=== PATIENT | male | born 1950 | race Caucasian/White ===

== ENCOUNTER 2020-12-06 00:48 | Day surgery (SDC) | payer MEDICARE, OTHER, SELFPAY ==
[2020-11-21 09:59] VITALS: BMI 28.0
--- NOTE | 2020-11-27 13:57 | PC.NURSE ---
CLEARANCE TO STOP PLAVIX SENT TO DR. MOTT, LAST OFFICE VISIT AND LETTER REGARDING PLAVIX RECEIVED FROM DR. MOTT'S OFFICE. LETTER FOR CLEARANCE STATES PT IS NOT ON PLAVIX. I CALLED PT TO CONFIRM AND PATIENT STATES THAT AT LAST OFFICE VISIT PT WAS TOLD TO STOP PLAVIX AND DO JUST AN ASPIRIN A DAY, AND HE ASKED IF HE COULD FINISH THE PRESCRIPTION HE HAD AND DR. MOTT AGREED IF HE WANTED TO AND HE WOULD NOT SEND NEW SCRIPT FOR PLAVIX. OFFICE VISIT WAS ON 09/13/2020, PT HAD JUST FILLED PLAVIX ON 09/09/2020. PT HAS 2 WEEKS OF PLAVIX LEFT BUT WILL HOLD OF 12/01/2020, WILL CONTINUE [address]IN[address] DR. MOTT'S OFFICE NURSE NIKKI CALLED AND INFORMED OF THIS.
[2020-12-06 08:46] VITALS: BP 158/89; PULSE 47; RESP 16; TEMP 36.4; O2SAT 97
[2020-12-06] MEDS: LACTATED RINGERS 1,000 ML 150 ML IV CONT (08:57)
--- NOTE | 2020-12-06 09:17 | SUR.PREOP ---
DR DOCKERY NOTIFIED OF HR OF 47 NO NEW ORDERS AT THIS TIME
--- NOTE | 2020-12-06 09:21 | WPDANESEPPF ---
Anes - Initial Pre Proc Eval Procedure: Operation Date: 12/06/20 10:00 Proposed Procedures p Screening Colonoscopy - Fidel Kimble MD Date/Time: 12/06/20 09:21 Surgeon: Fidel Kimble MD Pre Op Diagnosis: fm hx of colon ca Patient Data Age: 70 Gender: M Height: 1.78 m Weight: 87.9 kg Last Vital Signs Temp 97.5 F L 12/06/20 08:46 Pulse 47 L 12/06/20 08:46 Resp 16 12/06/20 08:46 BP 158/89 H 12/06/20 08:46 Pulse Ox 97 12/06/20 08:46 Allergies Allergy/AdvReac Type Severity Reaction Status Date / Time venom-honey bee Allergy Severe SEVERE Unverified 12/06/20 08:43 CARRIES TWINJET Home Medications Medication Instructions Recorded Confirmed Type allopurinol 300 mg PO DAILY 11/21/20 12/06/20 History clopidogrel 75 mg PO DAILY 11/21/20 12/06/20 History epinephrine See Rx Instructions .ROUTE .COMPLEX 11/21/20 12/06/20 History felodipine 5 mg PO QPM 11/21/20 12/06/20 History finasteride 5 mg PO DAILY 11/21/20 12/06/20 History levothyroxine 75 mcg PO DAILY 11/21/20 12/06/20 History lisinopril 20 mg PO DAILY 11/21/20 12/06/20 History nebivolol [Bystolic] 10 mg PO DAILY 11/21/20 12/06/20 History rosuvastatin 20 mg PO HS 11/21/20 12/06/20 History tadalafil 5 mg PO DAILY 11/21/20 12/06/20 History tamsulosin 0.4 mg PO QPM 11/21/20 12/06/20 History Adults Multivitamin 1 cap PO DAILY 11/25/20 12/06/20 History Turmeric Curcumin 1,000 mg PO BID 11/25/20 12/06/20 History aspirin [Adult Low Dose Aspirin] 81 mg PO DAILY 11/25/20 12/06/20 History azelaic acid See Rx Instructions .ROUTE .COMPLEX 11/25/20 12/06/20 History coenzyme Q10 200 mg PO DAILY 11/25/20 12/06/20 History ferrous sulfate 325 mg PO DAILY 11/25/20 12/06/20 History ketoconazole [Nizoral] See Rx Instructions .ROUTE .COMPLEX 11/25/20 12/06/20 History loratadine [Claritin] 10 mg PO DAILY 11/25/20 12/06/20 History lutein-zeaxanthin 1 cap PO DAILY 11/25/20 12/06/20 History metronidazole See Rx Instructions .ROUTE .COMPLEX 11/25/20 12/06/20 History nitroglycerin 0.4 mg SUBLINGUAL Q5M PRN 11/25/20 12/06/20 History potassium 99 mg PO DAILY 11/25/20 12/06/20 History tacrolimus [Protopic] See Rx Instructions .ROUTE .COMPLEX 11/25/20 12/06/20 History Patient hx anesthesia problems: none Family hx anesthesia problems: none PMFSH Social History Social History (Updated 11/21/20 @ 09:56 by Marina Garnica RN) Smoking status: Never smoker Second hand tobacco smoke exposure: Yes Alcohol intake: never Substance use: never Substance use type: does not use Living arrangements: with family Occupation/Education: occupation Gender identity (if verbalized by the patient): Male Sexual Orientation (if Verbalized by the Patient): Straight or Heterosexual Spiritual care concerns: No Agree to blood products: No Anes - Eval Final PreProcedure Day of Procedure 12/06/20 09:21 Patient weight: normal Heart: regular rate and rhythm and bradycardia Lungs: clear to auscultation Airway: Mallampati scale class II Neurological: alert and oriented Last oral intake: >/= 8 hours ASA classification: III Emergent: no Anesthetic plan: proceed Anesthesia type and monitoring: general GIVS and standard monitoring Informed Consent: The patient's anesthetic plan and its attendant risks and benefits were discussed with the patient/family/POA. Questions were solicited and answers provided to the satisfaction of the patient/family/POA.
--- NOTE | 2020-12-06 09:24 | PM.HPGS ---
History of Present Illness History of Present Illness Consent: Risks, benefits, and alternatives have been discussed and questions answered. Patient agrees to proceed with procedure. Chief complaint: fm hx of colon ca Narrative: Murali South is a 70 year old male Referred for colon cancer screening. He has a family history of colon cancer Review of Systems Review of Systems: All systems reviewed & are unremarkable except as noted in HPI and below PMFSH Social History Social History Smoking status: Never smoker Second hand tobacco smoke exposure: Yes Alcohol intake: never Substance use: never Substance use type: does not use Living arrangements: with family Occupation/Education: occupation Gender identity (if verbalized by the patient): Male Sexual Orientation (if Verbalized by the Patient): Straight or Heterosexual Spiritual care concerns: No Agree to blood products: No Meds Home Medications and Allergies Home Medications Medication Instructions Recorded Confirmed Type allopurinol 300 mg PO DAILY 11/21/20 12/06/20 History clopidogrel 75 mg PO DAILY 11/21/20 12/06/20 History epinephrine See Rx Instructions .ROUTE .COMPLEX 11/21/20 12/06/20 History felodipine 5 mg PO QPM 11/21/20 12/06/20 History finasteride 5 mg PO DAILY 11/21/20 12/06/20 History levothyroxine 75 mcg PO DAILY 11/21/20 12/06/20 History lisinopril 20 mg PO DAILY 11/21/20 12/06/20 History nebivolol [Bystolic] 10 mg PO DAILY 11/21/20 12/06/20 History rosuvastatin 20 mg PO HS 11/21/20 12/06/20 History tadalafil 5 mg PO DAILY 11/21/20 12/06/20 History tamsulosin 0.4 mg PO QPM 11/21/20 12/06/20 History Adults Multivitamin 1 cap PO DAILY 11/25/20 12/06/20 History Turmeric Curcumin 1,000 mg PO BID 11/25/20 12/06/20 History aspirin [Adult Low Dose Aspirin] 81 mg PO DAILY 11/25/20 12/06/20 History azelaic acid See Rx Instructions .ROUTE .COMPLEX 11/25/20 12/06/20 History coenzyme Q10 200 mg PO DAILY 11/25/20 12/06/20 History ferrous sulfate 325 mg PO DAILY 11/25/20 12/06/20 History ketoconazole [Nizoral] See Rx Instructions .ROUTE .COMPLEX 11/25/20 12/06/20 History loratadine [Claritin] 10 mg PO DAILY 11/25/20 12/06/20 History lutein-zeaxanthin 1 cap PO DAILY 11/25/20 12/06/20 History metronidazole See Rx Instructions .ROUTE .COMPLEX 11/25/20 12/06/20 History nitroglycerin 0.4 mg SUBLINGUAL Q5M PRN 11/25/20 12/06/20 History potassium 99 mg PO DAILY 11/25/20 12/06/20 History tacrolimus [Protopic] See Rx Instructions .ROUTE .COMPLEX 11/25/20 12/06/20 History Allergies Allergy/AdvReac Type Severity Reaction Status Date / Time venom-honey bee Allergy Severe SEVERE Unverified 12/06/20 08:43 CARRIES [place] Vital Signs Vital Signs - 24 hr 12/06/20 08:46 Temperature 36.4 C L Pulse Rate 47 L Respiratory Rate 16 Blood Pressure 158/89 H Pulse Oximetry 97 Exam Resp: Auscultation: clear to auscultation bilaterally Cardio: Rate: regular rate Rhythm: regular rhythm GI: GI Palp: Yes Soft to palpation and No Tenderness to palpation present (GI) Assessment and Plan Assessment and plan (1) Colon cancer screening: Code(s): Z12.11 - Encounter for screening for malignant neoplasm of colon Status: Acute Assessment and Plan: Colonoscopy with possible biopsy or polypectomy or cautery or injection of substances.
[2020-12-06 09:49] VITALS: BP 109/66; PULSE 46; RESP 16; O2SAT 98
[2020-12-06 09:59] VITALS: BP 110/67; PULSE 45; RESP 16; O2SAT 99
[2020-12-06 10:09] VITALS: BP 114/71; PULSE 46; RESP 24; O2SAT 99
== END 2020-12-06 10:25 | disposition home or self-care (01) ==
PROVIDERS: PCP Family Medicine; Visit Provider Internal Medicine Gastroenterology
PROC: 0DJD8ZZ Inspection of Lower Intestinal Tract, Via Natural or Artificial Opening Endoscopic (ICD-10-PCS; CPT 45378; principal; 2020-12-06 10:00)
DX: Z12.11 Encounter for screening for malignant neoplasm of colon (principal); Z80.0 Family history of malignant neoplasm of digestive organs; K57.30 Diverticulosis of large intestine without perforation or abscess without bleeding; Z79.82 Long term (current) use of aspirin
CPT/HCPCS: G0105; J2704; J7120